=== PATIENT | male | born 1990 | race Caucasian/White ===

== ENCOUNTER 2017-06-17 08:10 | Emergency (ER) | payer OTHER, SELFPAY ==
[2017-06-17 08:33] LABS: Bilirubin Small (Negative); Blood, Urine Large (Negative); Clarity Cloudy (Clear); Glucose, Urine (Dipstick) Negative (Negative); Leukocyte Large (Negative); Nitrite Positive (Negative); Protein, Urine (Dipstick) > or equal to 300 mg/dL (Neg-Trace); pH, Urine 5.5 (5.0-9.0)
[2017-06-17 08:39] LABS: Bacteria/HPF 2+ HPF (None Seen); RBC/HPF GREATER THAN 50-TNTC HPF (0-3); Squamous Epithelial 0-3 HPF (0-3)
[2017-06-17 08:40] LABS: Crystals/HPF 1+ AMORPH URATES HPF (Negative)
[2017-06-17] MEDS ORDERED: Ibuprofen 800 MG TAB ONE (08:47)
[2017-06-17] MEDS ORDERED: cefTRIAXone\\ROCEPHIN 1 GM VIAL ONE (08:47)
[2017-06-17] MEDS ORDERED: Lidocaine 1% 20 ML MDV ONE (08:48)
[2017-06-17] MEDS ORDERED: Nitrofurantoin Monohyd/M-Cryst 100 MG CAP PO SCH (09:00)
== END 2017-06-17 09:08 | disposition home or self-care (01) ==
LOC: BURERS 08:10
DX: N12 Tubulo-interstitial nephritis, not specified as acute or chronic (principal)
CPT/HCPCS: 81003; 81015; 87077; 87086; 87186; 87491; 87591; 96372; J0696; J2001